=== PATIENT | male | born 1955 | race Caucasian/White ===

== ENCOUNTER 2016-12-10 09:00 | Inpatient (IN) | payer MEDICARE, MEDICAID ==
[~2016-12-10] VITALS: Ht 185.4 cm; Wt 116.4 kg
[~2016-12-10 09:00] MED LIST: ABILIFY5 MG PO; ALLOPURINOL300 M1 PO; ALLOPURINOL300 MG PO; ASPIR-LOW81 M1 PO; ASPIR-LOW81 MG PO; CATAPRES0.1 MG PO; CEFAZOLIN1 GM/10 M1 IV; CEFAZOLIN2000 MG/50 IV; CERTA PLUS TAB1 EACH PO; COLACE100 MG PO; COUMADIN3 MG PO; COUMADIN4 M1 PO; COUMADIN4 MG PO; COUMADIN7.5 MG PO; COZAAR50 M1 PO; COZAAR50 MG PO; CPAP; ENOXAPARIN40 MG/0.4 SQ; EXFORGE HCT 101 EAC2 PO; EXFORGE HCT 101 EACH PO; GLUCOPHAGE1000 MG PO; HYDROCHLOROTH12.5 M1 PO; HYDROCHLOROTHIA25 MG PO; IBUPROFEN200 M1 PO; K-DUR10 ME1 PO; LASIX40 M1 PO; LASIX40 MG PO; LEVOTHROID75 MCG PO; LEVOTHYROXINE75 MC3 PO; LIPITOR40 M1 PO; LIPITOR80 MG PO; LOVAZA1 GM PO; LOVAZA1 GM/CAP NG; LOVENOX100 MG/ML SQ; LOVENOX120 MG/0.8 SQ; METOPROLOL SUCC50 M1 PO; METOPROLOL TAR100 MG PO; MILK OF MAGNESIA PO; MULTIVITAMIN1 TAB PO; NORCO 5/3251 TA2 PO; NORCO 7.5/325 T1 TAB PO; NORVASC10 M2 PO; NORVASC10 MG PO; PERCOCET 5-3251 EACH PO; PHOSPHA 250 NE250 M1 PO; PLAVIX75 MG PO; POTASSIUM CHLO10 ME1 PO; PRAVACHOL40 MG PO; PRILOSEC20 MG PO; PRISTIQ50 MG PO; SENOKOT-S (SENN1 TAB PO; SENOKOT-S TABL1 EACH PO; SPIRIVA18 MCG IH; TOPROL XL100 MG PO; TOPROL XL50 MG PO; TYLENOL325 M2 PO; TYLENOL325 MG PO; ULTRAM50 MG PO; VIIBRYD40 M1 PO; VIIBRYD40 MG PO; VITAMIN D-32000 UNI3 PO; VITAMIN D250000 UNIT PO; WARFARIN SODIUM3 M2 PO; WELLBUTRIN XL300 MG PO; XARELTO10 M1 PO; ZANTAC150 M1 PO; ZANTAC150 MG PO; ZOLPIDEM TARTRA10 M2 PO; [UNRECOGNIZED DRUG - OTHER] PO
[2016-12-10] MEDS ORDERED: LASIX20 M1 PO (16:59)
[2016-12-10] MEDS ORDERED: THERA M PLUS TA1 TAB PO (17:02)
[2016-12-10] MEDS ORDERED: CYMBALTA20 M1 PO (17:02)
[2016-12-10] MEDS ORDERED: ALDACTONE25 M1 PO (17:03)
[2016-12-10] MEDS ORDERED: ULTRAM50 M1 PO (17:04)
[2016-12-10] MEDS ORDERED: TOPROL XL50 M1 PO (17:04)
[2016-12-10] MEDS ORDERED: OMEPRAZOLE20 M4 PO (17:08)
[2016-12-12 11:27] LABS: PROTHROMBIN TIME 11.3 SECONDS (9.0-13.6)
[2016-12-12 11:34] LABS: ANION GAP 10 mmol/L (0-20); BLOOD UREA NITROGEN 17 mg/dl (6-24); CALCIUM 8.5 mg/dl (8.5-10.5); CARBON DIOXIDE-VENOUS 30 mmol/L (22-32); CHLORIDE 108 mmol/l (96-110); CREATININE 1.33 mg/dl (0.60-1.30); GLUCOSE 124 mg/dL (70-110); POTASSIUM 4.5 mmol/L (3.7-5.1); SODIUM 143 mmol/L (135-145); eGFR VALUE FOR BLACK 66 mL/Min
[2016-12-13 05:51] LABS: BASO % 0.2 % (0-2); EOS % 1.4 % (0-7); EOSINOPHIL ABSOLUTE COUNT 0.1 tho/cmm (0.0-0.7); HCT-HEMATOCRIT 38.3 % (36.0-53.5); HGB-HEMOGLOBIN 12.7 gm/dl (13.5-17.0); IMMATURE GRANULOCYTES ABSOLUTE 0.02 tho/cmm (0-0.03); IMMATURE GRANULOCYTES PERCENT 0.2 % (0-0.3); LYMPH % 20.8 % (20-45); MCH (MEAN CORPUSCULAR HGB) 30.2 pg (28.0-32.0); MCHC MEAN CORPUSCULAR HGB CONC 33.2 % (32.0-36.0); MCV (MEAN CELL VOLUME) 91.2 fl (82.0-96.0); MONO % 13.8 % (0-12); MONOCYTE ABSOLUTE COUNT 1.3 tho/cmm (0.0-1.2); NEUTROPHIL ABSOLUTE COUNT 6.1 tho/cmm (1.6-8.0); NEUTROPHIL-AUTOMATED 6.1 tho/cmm (1.6-8.0); NEUTROPHILS % 63.6 % (40-80); PLATELET COUNT 212 tho/cmm (150-450); RED CELL DISTRIBUTION WIDTH 13.7 % (12.4-16.4); WHITE BLOOD COUNT 9.6 tho/cmm (4.0-10.0)
[2016-12-13 05:58] LABS: ANION GAP 10 mmol/L (0-20); BLOOD UREA NITROGEN 14 mg/dl (6-24); CALCIUM 8.4 mg/dl (8.5-10.5); CARBON DIOXIDE-VENOUS 30 mmol/L (22-32); CHLORIDE 108 mmol/l (96-110); CREATININE 1.27 mg/dl (0.60-1.30); GLUCOSE 99 mg/dL (70-110); POTASSIUM 4.8 mmol/L (3.7-5.1); SODIUM 143 mmol/L (135-145); eGFR VALUE FOR BLACK 70 mL/Min
[2016-12-15 06:17] LABS: BASO % 0.2 % (0-2); EOS % 1.6 % (0-7); EOSINOPHIL ABSOLUTE COUNT 0.2 tho/cmm (0.0-0.7); HCT-HEMATOCRIT 36.2 % (36.0-53.5); HGB-HEMOGLOBIN 11.9 gm/dl (13.5-17.0); LYMPH % 14.3 % (20-45); LYMPH ABSOLUTE COUNT 1.4 tho/cmm (0.8-4.5); MCH (MEAN CORPUSCULAR HGB) 29.7 pg (28.0-32.0); MCHC MEAN CORPUSCULAR HGB CONC 32.9 % (32.0-36.0); MCV (MEAN CELL VOLUME) 90.3 fl (82.0-96.0); MEAN PLATELET VOLUME 10.6 cmc (9.4-12.4); MONOCYTE ABSOLUTE COUNT 1.5 tho/cmm (0.0-1.2); NEUTROPHIL ABSOLUTE COUNT 6.7 tho/cmm (1.6-8.0); NEUTROPHIL-AUTOMATED 6.7 tho/cmm (1.6-8.0); NEUTROPHILS % 68.9 % (40-80); PLATELET COUNT 226 tho/cmm (150-450); RED BLOOD COUNT 4.01 mil/cmm (4.40-5.70); WHITE BLOOD COUNT 9.7 tho/cmm (4.0-10.0)
[2016-12-15 06:18] LABS: ANION GAP 6 mmol/L (0-20); BLOOD UREA NITROGEN 12 mg/dl (6-24); CALCIUM 8.1 mg/dl (8.5-10.5); CARBON DIOXIDE-VENOUS 32 mmol/L (22-32); CHLORIDE 102 mmol/l (96-110); CREATININE 1.13 mg/dl (0.60-1.30); GLUCOSE 122 mg/dL (70-110); POTASSIUM 3.8 mmol/L (3.7-5.1); SODIUM 136 mmol/L (135-145); eGFR VALUE FOR BLACK 81 mL/Min
[2016-12-16] MEDS ORDERED: PERCOCET 5-3251 EACH PO (13:42)
[2016-12-16] MEDS ORDERED: CYCLOBENZAPRINE5 M1 PO (13:44)
[2016-12-16] MEDS ORDERED: SENOKOT-S TABL1 EACH PO (13:48)
== END 2016-12-16 14:05 | DRG 460 ==
LOC: CARE 12-12 10:00 → SHSB 12-12 10:18 → 5EB 12-12 10:18 → ORE 12-12 13:01 → PACU 12-12 14:45 → 5EB 12-12 16:00
PROVIDERS: Internal Medicine; ADMIT Orthopaedic Surgery Orthopaedic Surgery of the Spine
PROC: 0SG00A0 Fusion of Lumbar Vertebral Joint with Interbody Fusion Device, Anterior Approach, Anterior Column, Open Approach (ICD-10-PCS; principal; 2016-12-12)
DX: M51.26 Other intervertebral disc displacement, lumbar region (principal); K56.7 Ileus, unspecified; I12.9 Hypertensive chronic kidney disease with stage 1 through stage 4 chronic kidney disease, or unspecified chronic kidney disease; K91.89 Other postprocedural complications and disorders of digestive system; M51.36 Other intervertebral disc degeneration, lumbar region; E11.9 Type 2 diabetes mellitus without complications; E03.9 Hypothyroidism, unspecified; E66.9 Obesity, unspecified; G47.33 Obstructive sleep apnea (adult) (pediatric); F32.9 Major depressive disorder, single episode, unspecified; F41.9 Anxiety disorder, unspecified; M10.9 Gout, unspecified; J44.9 Chronic obstructive pulmonary disease, unspecified; N18.9 Chronic kidney disease, unspecified; I25.10 Atherosclerotic heart disease of native coronary artery without angina pectoris; Y83.8 Other surgical procedures as the cause of abnormal reaction of the patient, or of later complication, without mention of misadventure at the time of the procedure
CPT/HCPCS: A4306; C1713; J0690; J1170; J1815; J2250; J2270; J3010; J7040